=== PATIENT | female | born 1975 | race Caucasian/White ===

== ENCOUNTER 2020-08-10 10:02 | Emergency (ER) | payer SELFPAY ==
[~2020-08-10] VITALS: Ht 162.6 cm; Wt 61.2 kg
[2020-08-10 10:06] VITALS: BP 117/64
[2020-08-10] MEDS ORDERED: DICYCLOMINE HCL LIQUID 20 MG, ALUMINUM HYD/MAG/SIMETHICONE 30 ML, LIDOCAINE VISCOUS 2% ... PO ONE ×3 (10:15)
[2020-08-10] MEDS ORDERED: LIDOCAINE VISCOUS 2% 20 ML UDC ONE (10:24)
[2020-08-10] MEDS ORDERED: ALUMINUM HYD/MAG/SIMETHICONE 30 ML UDC ONE (10:24)
[2020-08-10] MEDS ORDERED: DICYCLOMINE HCL LIQUID 10 MG/5 ML UDC ONE (10:25)
[2020-08-10] MEDS ORDERED: KETOROLAC 60 MG/2 ML VIAL IM ONE (10:35)
[2020-08-10 10:53] VITALS: BP 117/64
== END 2020-08-10 10:54 | disposition home or self-care (01) ==
LOC: MED 10:02
DX: R10.13 Epigastric pain (principal)
CPT/HCPCS: 81002; 81025; 96372; 99283; J1885

== ENCOUNTER 2021-07-09 12:11 | Emergency (ER) | payer SELFPAY ==
[~2021-07-09] VITALS: Ht 160 cm; Wt 60.3 kg
[2021-07-09 12:27] VITALS: BP 109/70
--- NOTE | 2021-07-09 13:09 | NUR ---
LABS DRAWN GIVEN TO BECKY CHRISTENSEN
--- NOTE | 2021-07-09 13:10 | NUR ---
XRAY AT BEDSIDE
--- NOTE | 2021-07-09 13:39 | NUR ---
46 Y/O F BIB SELF FROM HOME, PATIENT PRESENTS TO ED WITH C/O PAIN IN L ANKLE, NO LONGER HAVING PAIN AT THIS TIME, SOME DIFFCULTY. PT STATES SHE WENT TO URGENT CARE WITH THAT CC AND SHE HAD BLOOD DRAWN, URGENT CARE NOTIFIED THAT PT WAS ANEMIC AND "NEEDS BLOOD TRANSFUSION". DENIES N/V/D; SKIN IS PALE/COOL/DRY; AAOX4 AMBULATES SLOWLY; LUNGS CLEAR BL; HR EVEN AND REGULAR; PT DENIES ANY FEVER, CP, SOB, OR COUGH AT THIS TIME; PATIENT STATES PAIN OF 0/10 AT THIS TIME; VSS; PATIENT POSITIONED FOR COMFORT; HOB ELEVATED; BEDRAILS UP X2; BED DOWN. ER MD MADE AWARE OF PT STATUS. PMH: ANEMIA NKA MED: DENIES
[2021-07-09 13:45] LABS: BASOPHILS # (AUTO) 0.1 K/uL (0.00-0.22); EOSINOPHILS # (AUTO) 0.1 K/uL (0-0.4); LYMPHOCYTES # (AUTO) 1.6 K/uL (2.5-16.5); MONOCYTES # (AUTO) 0.6 K/uL (0.8-1.0); MONOCYTES % (AUTO) 9.7 % (1.7-9.3); NEUTROPHILS # (AUTO) 4.1 K/uL (1.8-7.7); WHITE BLOOD COUNT (AUTO) 6.6 K/uL (4.8-10.8)
[2021-07-09 13:58] LABS: BASOPHILS % (AUTO) 1.7 % (0.0-2.0); EOSINOPHILS % (AUTO) 2.1 % (0.0-4.0); HEMATOCRIT 22.6 % (36-48); LYMPHOCYTES % (AUTO) 24.8 % (20.5-51.1); MEAN CORPUSCULAR HEMOGLOBIN 17 pg (27-31); MEAN CORPUSCULAR HGB CONC 29 g/dL (33-37); MEAN CORPUSCULAR VOLUME 57.9 fL (80-94); NEUTROPHILS % (AUTO) 61.7 % (42.2-75.2); PLATELET COUNT (AUTO) 493 K/uL (140-450); RED BLOOD CELL COUNT(AUTO) 3.91 MIL/uL (4.20-5.40); RED CELL DISTRIBUTION WIDTH 20.2 % (11.6-13.7)
[2021-07-09 14:02] LABS: HEMOGLOBIN 6.6 g/dL (12.0-16.0)
[2021-07-09 14:07] LABS: ALBUMIN 3.4 g/dL (3.4-5.0); CREATININE 0.7 mg/dL (0.6-1.3); TOTAL BILIRUBIN 0.2 mg/dL (0.0-1.0)
[2021-07-09] MEDS ORDERED: FERR325E14 PO (14:16)
[2021-07-09] MEDS ORDERED: MULT400T5 PO (14:16)
[2021-07-09] MEDS ORDERED: FERROUS SULFATE 325 MG TABEC PO SCH (14:20)
--- NOTE | 2021-07-09 16:58 | NUR ---
INFUSION STARTED AT THIS TIME INITIAL VITALS AT 1655 BP: 101/53 RR: 18 P: 74 TEMP: 99.2 TEMPORAL PAIN: 0/10
--- NOTE | 2021-07-09 17:14 | NUR ---
PT TOLERATED FIRST 15 MINUTES OF TRANSFUSION FOR BLOOD, NO NEW ONSET OF PAIN OR CHANGE IN VITALS AT THIS TIME.
--- NOTE | 2021-07-09 19:05 | NUR ---
REPORT RECIEVED FROM [facility]
--- NOTE | 2021-07-09 19:10 | NUR ---
Pt report given to VANGIE BAEZA. Transfer of care at this time.
--- NOTE | 2021-07-09 19:21 | NUR ---
HANDOFF GIVEN TO ANTOINE AT THIS TIME. TRANSFER OF CARE.
--- NOTE | 2021-07-09 19:22 | NUR ---
RECEIVED REPORT FROM VANGIE BAEZA FOR CONTINUITY OF CARE
--- NOTE | 2021-07-09 19:23 | NUR ---
BLOOD TRANSFUSION FINISHED. NO REACTIONS NOTED. VITAL SIGNS STABLE. PT DENIES ANY DISCOMFORT AT THIS TIME.
[2021-07-09 20:35] VITALS: BP 130/70
--- NOTE | 2021-07-09 20:35 | NUR ---
Patient discharged with v/s stable. Written and verbal after care instructions given and explained. Patient alert, oriented and verbalized understanding of instructions. Ambulatory with steady gait. All questions addressed prior to discharge. ID band AND IV ACCESS removed. Patient advised to follow up with PMD. Rx of FOLIC ACID AND FERROUS SULFATE given. Patient educated on indication of medication including possible reaction and side effects. Opportunity to ask questions provided and answered.
== END 2021-07-09 20:35 | disposition home or self-care (01) ==
LOC: MED 12:11
DX: D64.9 Anemia, unspecified (principal); M79.602 Pain in left arm
CPT/HCPCS: 36415; 36430; 73590; 80053; 85025; 86886; 86900; 86901; 86920; 93971; 99291; P9016

== ENCOUNTER 2023-01-30 23:06 | Emergency (ER) | payer SELFPAY ==
[~2023-01-30] VITALS: Ht 160 cm; Wt 63.3 kg
[~2023-01-30 23:06] MED LIST: FERR325E14 PO; MULT400T5 PO
[2023-01-30 23:29] VITALS: BP 104/73
[2023-01-30 23:35] VITALS: BP 104/73
--- NOTE | 2023-01-30 23:36 | NUR ---
PT TO BED
[2023-01-31] MEDS ORDERED: FAMOTIDINE 20 MG TAB PO ONE
[2023-01-31] MEDS ORDERED: ONDANSETRON 4 MG ODT PO ONE
[2023-01-31] MEDS ORDERED: ALUMINUM HYD/MAG/SIMETHICONE 30 ML UDC PO ONE
--- NOTE | 2023-01-31 00:58 | NUR ---
37YR OLD FEMALE BIB EMS C/O ANXIETY. PT DENIES CP OR SOB. A&OX4. ON BEDSIDE MONITOR. HOB ELEVATED. SKIN WARM AND DRY RESP EVEN AND UNLABORED. NKDA ANXIETY
[2023-01-31] MEDS ORDERED: KETOROLAC 30 MG/ML VIAL IM ONE (01:25)
[2023-01-31] MEDS ORDERED: ONDA-188 PO (02:32)
[2023-01-31] MEDS ORDERED: FAMO-90 PO (02:32)
[2023-01-31] MEDS ORDERED: MAG355OR2 PO (02:32)
--- NOTE | 2023-01-31 02:37 | NUR ---
Patient discharged with v/s stable. Written and verbal after care instructions given and explained. Patient verbalized understanding. Ambulatory with steady gait. All questions addressed prior to discharge. Advised to follow up with PMD.
--- NOTE | 2023-01-31 02:37 | NUR ---
Chart checked and completed.
== END 2023-01-31 02:37 | disposition home or self-care (01) ==
LOC: MED 23:06
DX: K21.9 Gastro-esophageal reflux disease without esophagitis (principal); Z79.899 Other long term (current) drug therapy
CPT/HCPCS: 96372; 99284; J1885; Q0162